=== PATIENT | male | born 1960 | race Caucasian/White ===

== ENCOUNTER 2025-01-01 00:35 | Inpatient (IN) | payer MEDICARE, OTHER ==
[~2025-01-01] VITALS: Ht 170.2 cm; Wt 114.9 kg
[2025-01-01] VITALS (18 sets, daily range): BP systolic 102–150; BP diastolic 66–88; TEMP 98.4–98.9; O2SAT 90–98
[2025-01-01] MEDS ORDERED: NALOXONE PREFILLED SYRINGE 2 MG/2 ML SYRINGE ONE ×2 (00:57→04:11)
[2025-01-01] MEDS: NALOXONE PREFILLED SYRINGE 2 MG/2 ML SYRINGE IV ONE ×2 (01:03→04:12)
[2025-01-01 01:14] LABS: PLATELET COUNT (AUTO) 156 K/uL (150-450); RED BLOOD CELL COUNT(AUTO) 3.41 MIL/uL (4.5-6.0); RED CELL DISTRIBUTION WIDTH 13.6 % (11.5-15.0); WHITE BLOOD COUNT (AUTO) 12.9 K/uL (4.3-11.0)
[2025-01-01 01:22] LABS: CALCIUM, SERUM 8.2 mg/dL (8.5-10.1); CREATININE 1.2 mg/dL (0.6-1.3); SODIUM SERUM 133 mmol/L (136-145); UREA NITROGEN, BLOOD 25 mg/dL (7-18)
[2025-01-01 01:30] LABS: INR 1.09 (0.91-1.10)
[2025-01-01 01:34] LABS: ASPARTATE AMINOTRANSFERASE 21 U/L (15-37); NT-PRO BNP 346 pg/mL (0-125); TOTAL PROTEIN, SERUM 6.7 g/dL (6.4-8.2)
[2025-01-01 03:44] LABS: AMPHETAMINE, URINE NEGATIVE (NEGATIVE); BARBITURATE, URINE NEGATIVE (NEGATIVE); BENZODIAZEPINE, URINE NEGATIVE (NEGATIVE); CANNABINOID, URINE NEGATIVE (NEGATIVE); COCCAINE, URINE NEGATIVE (NEGATIVE)
[2025-01-01 03:46] LABS: OPIATE, URINE POSITIVE (NEGATIVE)
[2025-01-01] MEDS ORDERED: NALOXONE HCL 0.4 MG/ML AMPUL ONE (08:08)
[2025-01-01] MEDS: NALOXONE HCL 0.4 MG/ML AMPUL IV ONE (08:16)
[2025-01-01] MEDS: NALOXONE HCL 4 MG in IV NS 0.9% 240 ML IV PRN (08:39)
[2025-01-01 09:32] LABS: ABG BASE EXCESS 3.9 mmol/L (-2.0-3.0); ABG OXYGEN SATURATION 74.5 % (94.0-98.0); ABG PCO2 71.0 mmHg (35.0-48.0); ABG PH 7.279 (7.350-7.450); ABG PO2 40.6 mmHg (83.0-108.0); ABG TOTAL HEMOGLOBIN 12.2 G/dL (13.5-17.5); FLOW, BLOOD GAS 10.00 L/min (0.00-30.00); FRACTIONATED INSPIRED OXYGEN 60.0 %; SITE, ABG VBG - N/A
[2025-01-01] MEDS ORDERED: HYDROCORTISONE SOD SUCCINATE 100 MG/2 ML VIAL ONE (09:34)
[2025-01-01] MEDS ORDERED: IPRATROPIUM NEB FS 0.5 MG/2.5 ML AMPUL.NEB ONE (10:03)
[2025-01-01] MEDS: IPRATROPIUM NEB FS 0.5 MG/2.5 ML AMPUL.NEB NEB SCH (10:05)
[2025-01-01] MEDS ORDERED: MAGNESIUM HYDROXIDE 30 ML UDC PO PRN (12:00)
[2025-01-01] MEDS ORDERED: DEXTROSE 50%-WATER 50 ML DISP.SYRIN IV PRN (12:00)
[2025-01-01] MEDS ORDERED: Z GUARD REMEDY 4 OZ OINT TP PRN (12:00)
[2025-01-01] MEDS: ENOXAPARIN SODIUM 40 MG/0.4 ML DISP.SYRIN SQ SCH (12:26)
[2025-01-01] MEDS: BLOOD SUGAR DIAGNOSTIC 1 EACH STRIP IN SCH (12:26)
[2025-01-01] MEDS ORDERED: METF-440 PO (12:51)
[2025-01-01] MEDS ORDERED: RISP4TAB70 PO (12:51)
[2025-01-01] MEDS ORDERED: ZOLP10TA2 PO (12:51)
[2025-01-01] MEDS ORDERED: RAME8TAB15 PO (12:51)
[2025-01-01] MEDS ORDERED: METO25TA6 PO (12:51)
[2025-01-01] MEDS ORDERED: QUET400T PO (12:51)
[2025-01-01] MEDS ORDERED: MULT-1244 PO (12:51)
[2025-01-01] MEDS ORDERED: SERT100T PO (12:51)
[2025-01-01] MEDS ORDERED: LINA145C PO (12:51)
[2025-01-01] MEDS ORDERED: ROSU20TA2 PO (12:51)
[2025-01-01] MEDS ORDERED: AMLO-212 PO (12:51)
[2025-01-01] MEDS ORDERED: SULF-293 PO (12:51)
[2025-01-01] MEDS ORDERED: HYDR-3980 PO (12:51)
[2025-01-01] MEDS: INSULIN REGULAR, HUMAN 100 UNIT/ML 3 ML VIAL SQ PRN (22:28)
[2025-01-02] VITALS (22 sets, daily range): BP systolic 101–149; BP diastolic 61–101; TEMP 97.7–98.7; O2SAT 89–97
[2025-01-02 04:44] LABS: PLATELET COUNT (AUTO) 183 K/uL (150-450); RED BLOOD CELL COUNT(AUTO) 3.80 MIL/uL (4.5-6.0); RED CELL DISTRIBUTION WIDTH 13.3 % (11.5-15.0); WHITE BLOOD COUNT (AUTO) 7.7 K/uL (4.3-11.0)
[2025-01-02 04:58] LABS: CALCIUM, SERUM 9.1 mg/dL (8.5-10.1); CREATININE 1.0 mg/dL (0.6-1.3); PHOSPHORUS 2.6 mg/dL (2.5-4.9); SODIUM SERUM 134.0 mmol/L (136-145); UREA NITROGEN, BLOOD 31.0 mg/dL (7-18)
[2025-01-02 05:12] LABS: IRON, SERUM 16.0 ug/dl (50-175)
[2025-01-02] MEDS ORDERED: Z GUARD REMEDY 4 OZ OINT TP PRN (07:30)
[2025-01-02] MEDS: ACETAMINOPHEN 325 MG TABLET PO PRN (08:20)
[2025-01-02] MEDS: PANTOPRAZOLE 40 MG TABLET.DR PO SCH (08:20)
[2025-01-02] MEDS: Z GUARD REMEDY 4 OZ OINT TP SCH (08:41)
[2025-01-02] MEDS ORDERED: HYDROCODONE/APAP 5/325MG TABLET PO PRN (09:00)
[2025-01-02] MEDS: SERTRALINE HCL 50 MG TABLET PO SCH (09:56)
[2025-01-02] MEDS: METOPROLOL TARTRATE 25 MG TABLET PO SCH (09:58)
[2025-01-02] MEDS: AMLODIPINE BESYLATE 5 MG TABLET PO SCH (09:59)
[2025-01-02] MEDS: MULTIVITAMINS,THERAGRAN 1 UDTAB TABLET PO SCH (09:59)
[2025-01-02] MEDS: HYDROCODONE/APAP 10/325MG TABLET PO SCH (09:59)
[2025-01-02 10:44] LABS: ABG BASE EXCESS 0.6 mmol/L (-2.0-3.0); ABG OXYGEN SATURATION 93.5 % (94.0-98.0); ABG PCO2 35.8 mmHg (35.0-48.0); ABG PH 7.451 (7.350-7.450); ABG PO2 65.1 mmHg (83.0-108.0); ABG TOTAL HEMOGLOBIN 10.1 G/dL (13.5-17.5); FLOW, BLOOD GAS 3.00 L/min (0.00-30.00); FRACTIONATED INSPIRED OXYGEN 32.0 %; SITE, ABG RIGHT RADIAL
[2025-01-02] MEDS: ATORVASTATIN 40 MG TABLET PO SCH (17:32)
[2025-01-02] MEDS: QUETIAPINE FUMARATE 100 MG TABLET PO SCH (17:32)
[2025-01-02] MEDS ORDERED: RAMELTEON PO SCH (22:00)
[2025-01-03] VITALS (13 sets, daily range): BP systolic 95–160; BP diastolic 58–96; TEMP 97.5–98.2; O2SAT 92–97
[2025-01-03 10:54] LABS: PLATELET COUNT (AUTO) 210 K/uL (150-450); RED BLOOD CELL COUNT(AUTO) 3.84 MIL/uL (4.5-6.0); RED CELL DISTRIBUTION WIDTH 13.0 % (11.5-15.0); WHITE BLOOD COUNT (AUTO) 7.8 K/uL (4.3-11.0)
[2025-01-03 11:01] LABS: CALCIUM, SERUM 8.7 mg/dL (8.5-10.1); CREATININE 1.0 mg/dL (0.6-1.3); PHOSPHORUS 1.9 mg/dL (2.5-4.9); SODIUM SERUM 130.0 mmol/L (136-145); UREA NITROGEN, BLOOD 32.0 mg/dL (7-18)
[2025-01-03] MEDS: K PHOS NEUTRAL 250 MG TABLET PO ONE (16:07)
[2025-01-03] MEDS: ONDANSETRON HCL/PF 4 MG/2 ML VIAL IVP PRN (21:20)
[2025-01-04] VITALS (11 sets, daily range): BP systolic 101–152; BP diastolic 60–91; TEMP 97.5–98.3; O2SAT 91–97
[2025-01-04 15:33] LABS: PLATELET COUNT (AUTO) 150 K/uL (150-450); RED BLOOD CELL COUNT(AUTO) 3.86 MIL/uL (4.5-6.0); RED CELL DISTRIBUTION WIDTH 14.4 % (11.5-15.0); WHITE BLOOD COUNT (AUTO) 6.6 K/uL (4.3-11.0)
[2025-01-04 15:45] LABS: CALCIUM, SERUM 8.1 mg/dL (8.5-10.1); CREATININE 1.0 mg/dL (0.6-1.3); PHOSPHORUS 2.9 mg/dL (2.5-4.9); SODIUM SERUM 129.0 mmol/L (136-145); UREA NITROGEN, BLOOD 30.0 mg/dL (7-18)
[2025-01-04 19:05] LABS: PLATELET COUNT (AUTO) 211 K/uL (150-450); RED BLOOD CELL COUNT(AUTO) 3.87 MIL/uL (4.5-6.0); RED CELL DISTRIBUTION WIDTH 13.1 % (11.5-15.0); WHITE BLOOD COUNT (AUTO) 7.0 K/uL (4.3-11.0)
[2025-01-04 19:12] LABS: CALCIUM, SERUM 8.3 mg/dL (8.5-10.1); CREATININE 0.9 mg/dL (0.6-1.3); SODIUM SERUM 134 mmol/L (136-145); UREA NITROGEN, BLOOD 29 mg/dL (7-18)
[2025-01-04 19:22] LABS: INR 1.05 (0.91-1.10)
[2025-01-05] VITALS (10 sets, daily range): BP systolic 159–166; BP diastolic 86–105; TEMP 97.6–98; O2SAT 89–98
[2025-01-05 10:51] LABS: PLATELET COUNT (AUTO) 255 K/uL (150-450); RED BLOOD CELL COUNT(AUTO) 4.37 MIL/uL (4.5-6.0); RED CELL DISTRIBUTION WIDTH 13.0 % (11.5-15.0); WHITE BLOOD COUNT (AUTO) 7.2 K/uL (4.3-11.0)
[2025-01-05 11:34] LABS: CALCIUM, SERUM 8.9 mg/dL (8.5-10.1); CREATININE 1.1 mg/dL (0.6-1.3); PHOSPHORUS 3.2 mg/dL (2.5-4.9); SODIUM SERUM 133.0 mmol/L (136-145); UREA NITROGEN, BLOOD 30.0 mg/dL (7-18)
[2025-01-05] MEDS ORDERED: PANT40TA49 PO (11:52)
[2025-01-05] MEDS ORDERED: METH4TAB17 PO (11:52)
[2025-01-05] MEDS ORDERED: IPRA0.2S9 NEB (11:52)
[2025-01-05] MEDS ORDERED: SULFAMETH/TRIMETH 800/160 MG 1 UDTAB TABLET PO SCH (21:00)
== END 2025-01-05 15:15 | DRG 154 ==
LOC: ER 00:46 → ICU 10:18 → TELE1 01-02 10:50 → MEDSG1 01-03 13:10
PROVIDERS: ADMIT Nurse Practitioner Family; ATTEND Student in an Organized Health Care Education/Training Program
PROC: 5A09357 Assistance with Respiratory Ventilation, Less than 24 Consecutive Hours, Continuous Positive Airway Pressure (ICD-10-PCS; principal; 2025-01-01)
DX: G47.33 Obstructive sleep apnea (adult) (pediatric) (principal); J96.01 Acute respiratory failure with hypoxia; J96.02 Acute respiratory failure with hypercapnia; J44.1 Chronic obstructive pulmonary disease with (acute) exacerbation; E87.1 Hypo-osmolality and hyponatremia; I10 Essential (primary) hypertension; E78.5 Hyperlipidemia, unspecified; Z98.890 Other specified postprocedural states; Z88.8 Allergy status to other drugs, medicaments and biological substances; Z53.20 Procedure and treatment not carried out because of patient's decision for unspecified reasons; Z79.891 Long term (current) use of opiate analgesic; D72.829 Elevated white blood cell count, unspecified; F43.9 Reaction to severe stress, unspecified; R79.89 Other specified abnormal findings of blood chemistry; Z72.0 Tobacco use; E66.9 Obesity, unspecified; E11.9 Type 2 diabetes mellitus without complications; F20.9 Schizophrenia, unspecified; Z68.39 Body mass index [BMI] 39.0-39.9, adult
CPT/HCPCS: 36415; 70450-TC; 71045-TC; 80048-TC; 80076-TC; 82728-TC; 82962-TC; 83540-TC; 83735-TC; 83880; 84100-TC; 84439-TC; 84443-TC; 84484-TC; 85025-TC; 85730-TC; 87081-TC; 94760-TC; 94799-TC; 97110-TC; 97112-TC; 97530-TC; A4223; G0378; J1650; J1720; J1815; J2312; J2405; J2919; J7050